=== PATIENT | male | born 1955 | race Caucasian/White ===

== ENCOUNTER 2018-09-02 21:20 | Inpatient (IN) | payer MEDICAID, OTHER ==
[2018-09-02] MEDS ORDERED: KETAMINE HCL INJ 500 MG/10 ML VIAL IV ONE (21:25)
[2018-09-02] MEDS ORDERED: ALBUTEROL SULFATE 0.083% NEB 2.5 MG/3 ML AMPUL NEB ONE ×2 (21:25→23:30)
--- NOTE | 2018-09-02 21:45 | ER Document Report ---
ED General - General Stated Complaint: RESPIRATORY DISTRESS Cannot obtain history due to: Unstable vital signs Notes: Patient is a 63-year-old male with a past medical history of COPD, active smoker , hypertension, alcohol abuse, who presents by EMS with concerns of shortness of breath. Patient himself is unable to provide meaningful history due to his degree of distress at time of arrival. EMS does report that when they arrived to the home it was filled with tobacco smoking was very hot. He said the patient was saturating 85% on room air, was in severe respiratory distress. In route to the hospital he received magnesium, Solu-Medrol, multiple nebulizers but refused to tolerate CPAP. He states he does not currently have a primary care doctor. History is otherwise limited secondary to his degree of distress. TRAVEL OUTSIDE OF THE [place] IN LAST 30 DAYS: No - Related Data Allergies/Adverse Reactions: Penicillins Allergy (Verified 01/06/15 09:59) Sulfa (Sulfonamide Antibiotics) Allergy (Verified 01/06/15 09:59) Past Medical History - General Information source: Patient Cannot obtain history due to: Unstable vital signs - Social History Smoking Status: Current Every Day Smoker Frequency of alcohol use: Heavy Drug Abuse: None Lives with: Alone Family History: Reviewed & Not Pertinent Pulmonary Medical History: Reports: Hx Asthma, Hx COPD, Hx Pneumonia Past Surgical History: Reports: Hx Oral Surgery - jaw - Immunizations Immunizations up to date: Yes Hx Diphtheria, Pertussis, Tetanus Vaccination: Yes - 2009 Hx Pneumococcal Vaccination: 10/31/09 Review of Systems - Review of Systems Notes: Constitutional: Negative for fever. HENT: Negative for sore throat. Eyes: Negative for visual changes. Cardiovascular: Negative for chest pain. Respiratory: Positive for shortness of breath. Gastrointestinal: Negative for abdominal pain, vomiting or diarrhea. Genitourinary: Negative for dysuria. Musculoskeletal: Negative for back pain. Skin: Negative for rash. Neurological: Negative for headaches, weakness or numbness. 10 point ROS negative except as marked above and in HPI. Physical Exam - Vital signs Vitals: Pulse Ox 100 09/02/18 21:24 Interpretation: Tachycardic, Hypoxic, Tachypneic Notes: PHYSICAL EXAMINATION: GENERAL: Appears in moderate to severe respiratory distress, appears quite uncomfortable HEAD: Atraumatic, normocephalic. EYES: Pupils equal round and reactive to light, extraocular movements intact, sclera anicteric, conjunctiva are normal. ENT: nares patent, oropharynx clear without exudates. Moderately dry mucous membranes. NECK: Normal range of motion, supple without lymphadenopathy LUNGS: Moderate to severe respiratory distress, extremely poor air movement throughout almost silent at the bases bilaterally. Coarse expiratory wheezing in all lung mack. HEART: Regular tachycardia without murmurs ABDOMEN: Soft, nontender, normoactive bowel sounds. No guarding, no rebound. No masses appreciated. EXTREMITIES: Normal range of motion, no pitting or edema. No cyanosis. NEUROLOGICAL: No focal neurological deficits. Moves all extremities spontaneously and on command. PSYCH: Moderately anxious SKIN: Warm, Dry, normal turgor, no rashes or lesions noted. Course - Re-evaluation Re-evalutation: 09/02/18 21:44 Documentation is delayed as I have been at the patient's bedside since he arrived. In summary the patient arrives in respiratory distress, intercostal and supraclavicular retractions are noted. He has very poor air movement in all lung mack particular at the bases which are effectively silent at time of presentation. He has already received 125 mg of Solu-Medrol, 2 g of magnesium, and 3 duo nebulizers prior to arrival. The patient was immediately placed on BiPAP at time of arrival given his ongoing distress. Will continue ongoing in- line albuterol nebulizers. Will obtain chest x-ray, labs and give low-dose ketamine for anxiolysis as well as bronchodilation. Patient is critically ill, will require frequent reassessments as he is high risk for respiratory decompensation and need for intubation. 09/02/18 22:26 Patient continues to continue to take off the BiPAP despite having ongoing moderate respiratory distress. Will give Valium so that he is able to cope with the BiPAP better. Will continue to keep on BiPAP as much the patient will tolerate. 09/02/18 23:30 Patient is continued to be unable to tolerate BiPAP and it therefore has been discontinued. His work of breathing is however much improved at this point. He does have moderate tachypnea although his oxygen saturation is currently 96% on 2 L by nasal cannula. He does not have a baseline oxygen requirement. Will discuss with the hospitalist for admission. 09/02/18 23:33 I discussed the case with Dr. Bhagat who has accepted the patient for admission - Vital Signs Vital signs: Temp Pulse Resp BP Pulse Ox 98.1 F 19 111/62 97 09/03/18 01:38 EDT 09/03/18 01:08 EDT 09/03/18 01:08 EDT 09/03/18 01:08 EDT - Laboratory Result Diagrams: 09/02/18 21:45 09/02/18 21:45 Laboratory results interpreted by me: 09/02/18 09/02/18 21:45 21:45 MCV 104 H MCH 36.0 H RDW 15.2 H Seg Neutrophils % 27.6 L Lymphocytes % 54.8 H Eosinophils % 8.3 H Absolute Eosinophils 0.7 H BUN 5 L ALT 18 L - Diagnostic Test Radiology reviewed: Image reviewed, Reports reviewed Radiology results interpreted by me: 09/02/18 23:30 Chest x-ray: No acute infiltrate or pneumothorax Critical Care Note - Critical Care Note Total time excluding time spent on procedures (mins): 36 Comments: Critical care time spent obtaining history from patient or surrogate, discussions with consultants, development of treatment plan with patient or surrogate, evaluation of patient's response to treatment, examination of patient , ordering and performing treatments and interventions, ordering and review of laboratory studies, re-evaluation of patient's condition, ordering and review of radiographic studies and review of old charts Discharge - Discharge Clinical Impression: Respiratory distress, Tobacco use disorder, COPD exacerbation Condition: Fair Disposition: ADMITTED INPATIENT Admitting Provider: Hospitalist Unit Admitted: Telemetry
[2018-09-02 21:58] LABS: ABSOLUTE EOSINOPHILS # (AUTO) 0.7 10^3/uL (0.0-0.6); ABSOLUTE LYMPHOCYTES (AUTO) 4.3 10^3/uL (0.5-4.7); ABSOLUTE MONOCYTES (AUTO) 0.7 10^3/uL (0.1-1.4); ABSOLUTE NEUT (AUTO) 2.2 10^3/uL (1.7-8.2); BASOPHILS % (AUTO) 0.5 % (0-2); EOSINOPHILS % (AUTO) 8.3 % (0-6); HEMATOCRIT 45.9 % (37.9-51.0); HEMOGLOBIN 15.9 g/dL (13.5-17.0); LYMPHOCYTES % (AUTO) 54.8 % (13-45); MEAN CORPUSCULAR HGB CONC 34.6 g/dL (32.0-36.0); MEAN CORPUSCULAR VOLUME 104 fl (80-97); MONOCYTES % (AUTO) 8.8 % (3-13); PLATELET COUNT 213 10^3/uL (150-450); RED BLOOD COUNT 4.41 10^6/uL (4.35-5.55); RED CELL DISTRIBUTION WIDTH 15.2 % (11.5-14.0); SEGMENTED NEUTROPHILS % (AUTO) 27.6 % (42-78); TOTAL CELLS COUNTED % (AUTO) 100 %; WHITE BLOOD COUNT 7.8 10^3/uL (4.0-10.5)
[2018-09-02 22:09] LABS: ALANINE AMINOTRANSFERASE 18 U/L (21-72); ALBUMIN 4.1 g/dL (3.5-5.0); ALKALINE PHOSPHATASE 100 U/L (38-126); ANION GAP 14 (5-19); ASPARTATE AMINO TRANSFERASE 27 U/L (17-59); BILIRUBIN,DIRECT 0.3 mg/dL (0.0-0.4); BILIRUBIN,TOTAL 0.8 mg/dL (0.2-1.3); BLOOD UREA NITROGEN 5 mg/dL (7-20); CALCIUM 8.8 mg/dL (8.4-10.2); CARBON DIOXIDE 26 mmol/L (22-30); CHLORIDE 103 mmol/L (98-107); GLUCOSE 110 mg/dL (75-110); POTASSIUM 3.8 mmol/L (3.6-5.0); SODIUM 143.1 mmol/L (137-145); TOTAL PROTEIN 6.7 g/dL (6.3-8.2)
--- NOTE | 2018-09-02 22:22 | RADIOLOGY REPORT (SQ) ---
EXAM DESCRIPTION: XR CHEST 1 VIEW COMPLETED DATE/TME: 09/02/2018 21:26 CLINICAL HISTORY: 63 years, Male, sob COMPARISON: None. NUMBER OF VIEWS: 1 TECHNIQUE: Upright portable chest LIMITATIONS: None. FINDINGS: The heart size is normal. Underlying emphysema. Osteopenia. Multiple old right rib fractures. Lungs are clear. No pneumothorax IMPRESSION: Underlying emphysema. Lungs are clear 2010 [employer]- All Rights Reserved
[2018-09-02] MEDS ORDERED: DIAZEPAM INJ 10 MG/2 ML DISP.SYRIN IV ONE (22:23)
[2018-09-02] MEDS ORDERED: RINGERS SOLUTION,LACTATED 1,000 ML IV ONE (22:26)
[2018-09-02] MEDS ORDERED: NICOTINE 21 MG/24 HR PATCH.TD24 TD ONE (23:31)
[2018-09-02] MEDS ORDERED: PROMETHAZINE HCL 25 MG TABLET PO PRN (23:44)
[2018-09-02] MEDS ORDERED: PROMETHAZINE HCL INJ 25 MG/1 ML VIAL IV PRN (23:44)
[2018-09-02] MEDS ORDERED: ACETAMINOPHEN 325 MG TABLET PO PRN (23:44)
[2018-09-02] MEDS ORDERED: MAG HYDROX/AL HYDROX/SIMETH SUSP 30 ML UDCUP PO PRN (23:44)
[2018-09-03] MEDS ORDERED: AZITHROMYCIN INJ 500 MG VIAL IV PRN (00:16)
[2018-09-03] MEDS ORDERED: METHYLPREDNISOLONE INJ 125 MG/2 ML SDV IV ONE (00:30)
--- NOTE | 2018-09-03 00:37 | PDOC H&P ---
History of Present Illness Admission Date/PCP: 09/02/18 23:48 Patient complains of: Shortness of breath History of Present Illness: SHANE CAPONE JR is a 63 year old male with history of COPD, no home oxygen. Patient comes with 4 days of progressive shortness of breath, persistent cough with large amounts of greenish sputum, wheezing, tells me that today he was unable to walk secondary to his shortness of breath. EMS was called and he was found sitting on the porch bending over with intercostal retractions. Found with an oxygen saturation 88%. On his way to the hospital he was given IV magnesium, IV steroids and nebulizer treatments. Upon arrival to our facility he was still in respiratory distress but improved from 40 bpm to 21. Patient was a still with some intercostal retractions and he was placed on BiPAP, patient was not keeping the BiPAP in the ED and ketamine and diazepam was given unsuccessfully. Patient was placed on 2 L oxygen via nasal cannula, current saturating 99%. Unfortunately patient is a smoker went down from 2 packs/day to 1 pack/day, he and his older sister smokes inside the house. Patient drinks usually 12 pack a day, today he has had 5 beers. Chest x-ray negative for acute infiltrates At the time of my evaluation patient was sitting on the bed on 2 L oxygen via nasal cannula, comfortable, no evidence of intercostal or supraclavicular retractions. Past Medical History Pulmonary Medical History: Reports: Asthma, Chronic Obstructive Pulmonary Disease (COPD), Pneumonia Past Surgical History Past Surgical History: Reports: Other - Oral surgery Social History Information Source: Patient Smoking Status: Current Every Day Smoker - Down from 2 packs/day to 1 pack/day Frequency of Alcohol Use: Heavy - A 12 pack a day Last Alcohol Use: 09/02/18 - 5 beers Hx Recreational Drug Use: No Hx Prescription Drug Abuse: No Past Social History Note: Lives with his older sister, both smoke inside the house. Family History Family History: Reviewed & Not Pertinent Family History: Mother of cancer. No children. Father of prostate cancer. Both parents at advanced ages at time of . Parental Family History Reviewed: Yes - As above Children Family History Reviewed: NA Sibling(s) Family History Reviewed.: NA Medication/Allergy Home Medications: Fluticasone/Salmeterol [Advair 250-50 Diskus 28 dose] 1 inh IH DAILY 01/06/15 Ipratropium/Albuterol Sulfate [Duoneb 3 ml Ampul] 3 ml NEB [id number] PRN 01/06/15 Tiotropium [place] [Spiriva Handihaler 18 mcg/dose (30 Dose)] 1 cap IH DAILY 07/15 Ipratropium/Albuterol Sulfate [Combivent Inhaler] 20 mcg IH Q4 03/18/15 Doxycycline Monohydrate 100 mg PO Q12H #10 tablet 03/22/15 Prednisone [Deltasone 20 mg Tablet] 40 mg PO DAILY #5 tablet 03/22/15 Prednisone [Deltasone 20 mg Tablet] 60 mg PO DAILY #12 tablet 04/13/15 Allergies/Adverse Reactions: Penicillins Allergy (Verified 01/06/15 09:59) Sulfa (Sulfonamide Antibiotics) Allergy (Verified 01/06/15 09:59) Review of Systems Review of Systems: As outlined in the HPI, others negative Physical Exam Vital Signs: Temp Pulse Resp BP Pulse Ox 19 131/82 H 96 09/03/18 00:01 09/03/18 00:01 09/03/18 00:01 Additional comments: General appearance: Well-developed, well-nourished, alert and cooperative, and appears to be in no acute distress. Wearing nasal cannula. Head: Normocephalic Eyes: PEERL, EOMI, vision is grossly intact. Ears: External auditory canal and tympanic membranes clear, hearing grossly intact. Nose: No nasal discharge. Throat: Oral cavity and pharynx normal. No inflammation, swelling, exudate or lesions. Not dentitition Neck: Neck supple, nontender without lymphadenopathy, masses or thyromegaly. Cardiac: Normal S1 and S2. No S3, S4 or murmurs. Rhythm is regular. There is no peripheral edema, cyanosis or pallor. Extremities are warm and well perfused. Capillary refill is less than 2 seconds. No carotid bruits. Lungs: Bilateral decreased air entry with moderate expiratory wheezing, moderate rhonchi, diffuse crackles not using accessory muscles. Abdomen: Positive bowel sounds. Soft. Nondistended, nontender. No guarding or rebound. No masses. No hepatosplenomegaly Extremities: No significant deformity or joint abnormality. No edema. Peripheral pulses intact. No varicosities. Neurological: Cranial nerves II through XII grossly intact. Strength and sensation symmetric and intact throughout. Reflexes 2+ throughout. Skin: Skin normal color, texture and turgor with no lesions or eruptions, warm and dry. Psychiatric: The mental examination revealed the patient was oriented to person , place, and time. The patient was able to demonstrate good judgment on recent , without hallucinations, abnormal affect or abnormal behaviors. Results Laboratory Results: 09/02/18 09/02/18 21:45 21:45 WBC 7.8 RBC 4.41 Hgb 15.9 Hct 45.9 MCV 104 H MCH 36.0 H MCHC 34.6 RDW 15.2 H Plt Count 213 Seg Neutrophils % 27.6 L Lymphocytes % 54.8 H Monocytes % 8.8 Eosinophils % 8.3 H Basophils % 0.5 Absolute Neutrophils 2.2 Absolute Lymphocytes 4.3 Absolute Monocytes 0.7 Absolute Eosinophils 0.7 H Absolute Basophils 0.0 Sodium 143.1 Potassium 3.8 Chloride 103 Carbon Dioxide 26 Anion Gap 14 BUN 5 L Creatinine 0.76 Est GFR ( Amer) > 60 Est GFR (Non-Af Amer) > 60 Glucose 110 Calcium 8.8 Total Bilirubin 0.8 Direct Bilirubin 0.3 AST 27 ALT 18 L Alkaline Phosphatase 100 Total Protein 6.7 Albumin 4.1 Impressions: Chest X-Ray 09/02/18 21:26 IMPRESSION: Underlying emphysema. Lungs are clear 2010 [employer]- All Rights Reserved Assessment & Plan - Diagnosis (1) Acute respiratory failure with hypoxia Is this a current diagnosis for this admission?: Yes Plan: Patient comes with acute respiratory failure, initial oxygen saturation 88% on room air, secondary to COPD exacerbation. Placed on BiPAP the patient could not tolerate despite being given ketamine and diazepam. Fortunately patient at that time could tolerate 2 L oxygen via nasal cannula with good oxygen saturation. (2) COPD with acute exacerbation Is this a current diagnosis for this admission?: Yes Plan: COPD exacerbation likely triggered by his smoking habit. We will keep the patient under telemetry monitoring, Solu-Medrol 80 mg IV every 8 hours, IV azithromycin, continue oxygen protocol via nasal cannula, RT consult, incentive spirometry, sputum culture. (3) Alcohol dependence Qualifiers: Complication of substance-induced condition: uncomplicated Is this a current diagnosis for this admission?: Yes Plan: Patient is heavy a smoker, usually drinks a 12 pack a day, today he drank about [address] IV Ativan as needed for withdrawal symptoms. IV thiamine will be ordered, we do not have banana bags at night they have to be mixed a pharmacy. Serum alcohol level added to prior labs. (4) Tobacco use disorder Is this a current diagnosis for this admission?: Yes Plan: Patient tells me he went down from 2 packs/day to 1 pack/day, unfortunately he smokes inside the house and his older sister who lives with him also smokes inside the house. Nicotine patch 21 mg/day. Counseling given. (5) DVT prophylaxis Is this a current diagnosis for this admission?: Yes Plan: Lovenox - Time Time Spent: 50 to 70 Minutes - Inpatient Certification Based on my medical assessment, after consideration of the patient's comorbidities, presenting symptoms, or acuity I expect that the services needed warrant INPATIENT care.: Yes I certify that my determination is in accordance with my understanding of Medicare's requirements for reasonable and necessary INPATIENT services [42 CFR 412.3e].: Yes Medical Necessity: Risk of Complication if Not Cared For in Hospital - Plan Summary Plan Summary: Plan discussed with patient, agrees with it.
[2018-09-03] MEDS ORDERED: AZITHROMYCIN 500 MG in DEXTROSE 5%-WATER 250 ML IV ONE (01:00)
[2018-09-03] MEDS: IPRATROPIUM/ALBUTEROL 0.5-2.5 MG/3 ML AMPUL NEB SCH ×5 (01:29→19:57)
[2018-09-03] MEDS ORDERED: METHYLPREDNISOLONE INJ 125 MG/2 ML SDV IV SCH (06:00)
[2018-09-03 06:09] LABS: ABSOLUTE LYMPHOCYTES (AUTO) 0.3 10^3/uL (0.5-4.7); ABSOLUTE NEUT (AUTO) 3.4 10^3/uL (1.7-8.2); BASOPHILS % (AUTO) 0.1 % (0-2); EOSINOPHILS % (AUTO) 0.1 % (0-6); HEMATOCRIT 39.8 % (37.9-51.0); HEMOGLOBIN 13.9 g/dL (13.5-17.0); LYMPHOCYTES % (AUTO) 7.4 % (13-45); MEAN CORPUSCULAR HEMOGLOBIN 36.3 pg (27.0-33.4); MEAN CORPUSCULAR VOLUME 104 fl (80-97); MONOCYTES % (AUTO) 0.6 % (3-13); PLATELET COUNT 147 10^3/uL (150-450); RED BLOOD COUNT 3.84 10^6/uL (4.35-5.55); RED CELL DISTRIBUTION WIDTH 14.6 % (11.5-14.0); SEGMENTED NEUTROPHILS % (AUTO) 91.8 % (42-78); TOTAL CELLS COUNTED % (AUTO) 100 %; WHITE BLOOD COUNT 3.7 10^3/uL (4.0-10.5)
[2018-09-03 06:22] LABS: ANION GAP 15 (5-19); BLOOD UREA NITROGEN 4 mg/dL (7-20); CALCIUM 8.6 mg/dL (8.4-10.2); CARBON DIOXIDE 22 mmol/L (22-30); CHLORIDE 105 mmol/L (98-107); GLUCOSE 165 mg/dL (75-110); PHOSPHORUS 2.7 mg/dL (2.5-4.5); POTASSIUM 3.3 mmol/L (3.6-5.0); SODIUM 142.2 mmol/L (137-145)
[2018-09-03 07:19] LABS: ARTERIAL BLOOD BASE EXCESS -5.2 mmol/L; ARTERIAL BLOOD H2CO3 1.08 mmol/L (1.05-1.35); ARTERIAL BLOOD HCO3 19.6 mmol/L (20-24); ARTERIAL BLOOD O2 SATURATION 96.2 % (94-98); ARTERIAL BLOOD PCO2 35.8 mmHg (35-45); ARTERIAL BLOOD PH 7.36 (7.35-7.45); ARTERIAL BLOOD PO2 85.4 mmHg (80-100); ARTERIAL BLOOD TOTAL CO2 20.7 mmol/L (23-27)
[2018-09-03 07:21] LABS: ARTERIAL BLOOD FIO2 1.5
[2018-09-03] MEDS: LORAZEPAM INJ 2 MG/1 ML VIAL IV PRN ×4 (08:30→21:33)
[2018-09-03] MEDS: ENOXAPARIN SODIUM INJ 40 MG/0.4 ML DISP.SYRIN SUBCUT SCH (09:09)
[2018-09-03] MEDS: NICOTINE 21 MG/24 HR PATCH.TD24 TD SCH (09:09)
[2018-09-03] MEDS ORDERED: TIOTROPIUM BROMIDE DPI 5 CAP/KIT (18 MCG/CAP) IH SCH (10:00)
[2018-09-03] MEDS ORDERED: FLUTICASONE/SALMETEROL DISKUS 250-50 MCG/DOSE IH SCH (10:00)
[2018-09-03] MEDS ORDERED: LEVALBUTEROL HCL NEB 1.25 MG/3 ML AMPUL NEB PRN (10:25)
--- NOTE | 2018-09-03 10:42 | PDOC PROGRESS REPORT ---
Subjective Progress Note for:: 09/03/18 Subjective:: The patient reports feeling better this morning. He is sitting eating breakfast on nasal cannula. He is not tachypneic and there is no audible wheeze. Reason For Visit: ACUTE HYPOXIC RESPIRATORY FAILURE,COPD EXACERBATIO Physical Exam Vital Signs: Temp Pulse Resp BP Pulse Ox 98.6 F 98 18 130/63 H 98 09/03/18 07:43 09/03/18 07:43 09/03/18 07:43 09/03/18 07:43 09/03/18 07:43 Intake & Output 09/02/18 09/03/18 09/04/18 07:59 06:59 06:59 Intake Total Output Total Balance General appearance: PRESENT: no acute distress, thin, well-developed Head exam: PRESENT: atraumatic, normocephalic Eye exam: PRESENT: conjunctiva pale, EOMI. ABSENT: scleral icterus Ear exam: PRESENT: normal external ear exam Mouth exam: PRESENT: moist, tongue midline Neck exam: PRESENT: full ROM. ABSENT: carotid bruit, JVD, lymphadenopathy Respiratory exam: PRESENT: clear to auscultation alia, prolonged expiratory phas - With decreased inspiratory phase., symmetrical. ABSENT: rales, rhonchi, wheezes Cardiovascular exam: PRESENT: RRR, +S1, +S2 GI/Abdominal exam: PRESENT: normal bowel sounds, soft. ABSENT: tenderness Extremities exam: PRESENT: other - Decreased muscle mass. ABSENT: pedal edema Neurological exam: PRESENT: alert, awake, oriented to person, oriented to place , oriented to situation Psychiatric exam: PRESENT: flat affect, normal mood Focused psych exam: ABSENT: delusional, paranoid, restlessness Skin exam: PRESENT: dry, intact, warm. ABSENT: cyanosis, rash Results Laboratory Results: 09/03/18 04:52 09/03/18 04:52 09/03/18 09/03/18 09/03/18 04:52 04:52 06:50 WBC 3.7 L RBC 3.84 L Hgb 13.9 Hct 39.8 MCV 104 H MCH 36.3 H MCHC 35.0 RDW 14.6 H Plt Count 147 L Seg Neutrophils % 91.8 H Lymphocytes % 7.4 L Monocytes % 0.6 L Eosinophils % 0.1 Basophils % 0.1 Absolute Neutrophils 3.4 Absolute Lymphocytes 0.3 L Absolute Monocytes 0.0 L Absolute Eosinophils 0.0 Absolute Basophils 0.0 Carbonic Acid 1.08 HCO3/H2CO3 Ratio 18:1 ABG pH 7.36 ABG pCO2 35.8 ABG pO2 85.4 ABG HCO3 19.6 L ABG O2 Saturation 96.2 ABG Base Excess -5.2 FiO2 1.5 Sodium 142.2 Potassium 3.3 L Chloride 105 Carbon Dioxide 22 Anion Gap 15 BUN 4 L Creatinine 0.64 Est GFR ( Amer) > 60 Est GFR (Non-Af Amer) > 60 Glucose 165 H Calcium 8.6 Phosphorus 2.7 Impressions: Chest X-Ray 09/02/18 21:26 IMPRESSION: Underlying emphysema. Lungs are clear 2010 [employer]- All Rights Reserved Assessment & Plan - Diagnosis (1) COPD with acute bronchitis Is this a current diagnosis for this admission?: Yes Plan: The patient presented with a history of coughing up discolored sputum. Chest x- ray did not reveal an infiltrate and we are waiting for sputum collection. It is likely he is suffering an exacerbation of his chronic obstructive pulmonary disease from an acute bronchitis. For the exacerbation of COPD he is on scheduled nebulizer treatments as well as as needed treatments. He continues his Advair and Spiriva and he is now on intravenous steroid therapy. For the acute bronchitis he is on azithromycin. (2) Alcohol dependence Qualifiers: Complication of substance-induced condition: uncomplicated Is this a current diagnosis for this admission?: Yes Plan: The patient has a history of alcohol use. In fact this morning he was already asking for beer. He is on thiamine with available lorazepam as needed. (3) Tobacco use disorder Is this a current diagnosis for this admission?: Yes Plan: He is a current smoker. He does have a nicotine patch. (4) Hypokalemia Is this a current diagnosis for this admission?: Yes Plan: The patient has hypokalemia today. I will start an oral supplement. With his significantly decreased muscle mass and history of alcoholism is likely due to inadequate potassium intake. - Time Time Spent with patient: 15-24 minutes Medications reviewed and adjusted accordingly: Yes
[2018-09-03] MEDS: THIAMINE HCL 500 MG in NORMAL SALINE 250 ML IV SCH (11:11)
[2018-09-03 11:46] LABS: HEMATOCRIT 40.9 % (37.9-51.0); MEAN CORPUSCULAR HEMOGLOBIN 35.7 pg (27.0-33.4); MEAN CORPUSCULAR HGB CONC 34.1 g/dL (32.0-36.0); MEAN CORPUSCULAR VOLUME 105 fl (80-97); PLATELET COUNT 163 10^3/uL (150-450); RED BLOOD COUNT 3.91 10^6/uL (4.35-5.55); RED CELL DISTRIBUTION WIDTH 14.9 % (11.5-14.0); WHITE BLOOD COUNT 4.7 10^3/uL (4.0-10.5)
[2018-09-03] MEDS ORDERED: POTASSIUM CHLORIDE 10 MEQ CAPSULE.ER PO ONE (12:00)
[2018-09-03] MEDS ORDERED: DIAZEPAM 5 MG TABLET PO ONE (16:37)
[2018-09-03] MEDS ORDERED: METOPROLOL TARTRATE 25 MG TABLET PO ONE (16:40)
[2018-09-03] MEDS ORDERED: NORMAL SALINE 1000 ML 1,000 ML IV PRN (16:44)
[2018-09-03] MEDS: METHYLPREDNISOLONE INJ 125 MG/2 ML SDV IV SCH (21:32)
[2018-09-03] MEDS: PROPRANOLOL HCL 20 MG TABLET PO SCH (21:35)
[2018-09-03] MEDS: AZITHROMYCIN 500 MG in DEXTROSE 5%-WATER 250 ML IV SCH (21:35)
--- NOTE | 2018-09-03 22:20 | EKG REPORT ---
SEVERITY:- ABNORMAL ECG - SINUS RHYTHM LEFT ANTERIOR FASCICULAR BLOCK BORDERLINE T ABNORMALITIES, ANT-LAT LEADS : Confirmed by: Irma Cisneros MD 03-Sep-2018 22:20:06
[2018-09-03] MEDS ORDERED: BEER PO ONE (23:55)
[2018-09-04] MEDS: LORAZEPAM INJ 2 MG/1 ML VIAL IV PRN ×5 (00:24→21:04)
[2018-09-04] MEDS: IPRATROPIUM/ALBUTEROL 0.5-2.5 MG/3 ML AMPUL NEB SCH ×4 (02:07→20:37)
[2018-09-04] MEDS ORDERED: LORAZEPAM INJ 2 MG/1 ML VIAL IV ONE ×2 (02:45→03:00)
[2018-09-04] MEDS ORDERED: LORAZEPAM INJ 2 MG/1 ML VIAL ONE (02:53)
[2018-09-04] MEDS ORDERED: DIVALPROEX SODIUM 500 MG TAB.SR.24H PO ONE (03:00)
[2018-09-04] MEDS ORDERED: DIAZEPAM 5 MG TABLET PO ONE (04:30)
[2018-09-04 06:32] LABS: HEMATOCRIT 40.5 % (37.9-51.0); HEMOGLOBIN 14.4 g/dL (13.5-17.0); MEAN CORPUSCULAR HEMOGLOBIN 36.5 pg (27.0-33.4); MEAN CORPUSCULAR HGB CONC 35.5 g/dL (32.0-36.0); MEAN CORPUSCULAR VOLUME 103 fl (80-97); PLATELET COUNT 140 10^3/uL (150-450); RED BLOOD COUNT 3.95 10^6/uL (4.35-5.55); RED CELL DISTRIBUTION WIDTH 14.7 % (11.5-14.0)
[2018-09-04 06:41] LABS: ANION GAP 16 (5-19); BLOOD UREA NITROGEN 11 mg/dL (7-20); CALCIUM 9.2 mg/dL (8.4-10.2); CARBON DIOXIDE 22 mmol/L (22-30); CHLORIDE 104 mmol/L (98-107); GLUCOSE 126 mg/dL (75-110); POTASSIUM 3.8 mmol/L (3.6-5.0); SODIUM 141.9 mmol/L (137-145)
[2018-09-04 07:27] LABS: WHITE BLOOD COUNT 14.7 10^3/uL (4.0-10.5)
[2018-09-04 07:29] LABS: ABSOLUTE LYMPHOCYTES# (MANUAL) 0.4 10^3/uL (0.5-4.7); ABSOLUTE MONOCYTES # (MANUAL) 0.7 10^3/uL (0.1-1.4); ABSOLUTE NEUTROPHILS# (MANUAL) 13.5 10^3/uL (1.7-8.2); BASOPHILS % (MANUAL) 0 % (0-2); EOSINOPHILS % (MANUAL) 0 % (0-6); LYMPHOCYTES % (MANUAL) 3 % (13-45); MONOCYTES % (MANUAL) 5 % (3-13); SEGMENTED NEUTROPHILS % (MAN) 92 % (42-78); TOTAL CELLS COUNTED 100
[2018-09-04 07:30] LABS: ANISOCYTOSIS SLIGHT; PLATELET COMMENT DECREASED
[2018-09-04] MEDS: THIAMINE HCL 500 MG in NORMAL SALINE 250 ML IV SCH (11:00)
[2018-09-04] MEDS: METHYLPREDNISOLONE INJ 125 MG/2 ML SDV IV SCH (11:01)
[2018-09-04] MEDS: PROPRANOLOL HCL 20 MG TABLET PO SCH ×2 (11:02→21:05)
[2018-09-04] MEDS: POTASSIUM CHLORIDE 10 MEQ CAPSULE.ER PO SCH (11:02)
[2018-09-04] MEDS: NICOTINE 21 MG/24 HR PATCH.TD24 TD SCH (11:03)
[2018-09-04] MEDS: ENOXAPARIN SODIUM INJ 40 MG/0.4 ML DISP.SYRIN SUBCUT SCH (11:48)
[2018-09-04] MEDS ORDERED: PROMETHAZINE HCL INJ 25 MG/1 ML VIAL IV PRN (12:30)
[2018-09-04] MEDS: DIVALPROEX SODIUM 500 MG TAB.SR.24H PO SCH (17:00)
--- NOTE | 2018-09-04 18:31 | PDOC PROGRESS REPORT ---
Subjective Progress Note for:: 09/04/18 Subjective:: The patient reports feeling better this morning. He is sitting eating breakfast on nasal cannula. He is not tachypneic and there is no audible wheeze. 09/04/2018-the patient had a difficult night. He was tremulous and tachycardic. Despite giving him a beer and starting Depakote he required a large dose of Valium later in the night. At this encounter he is still sleeping off the medication. He is breathing comfortably on nasal cannula. He was not cooperative with the BiPAP. Reason For Visit: ACUTE HYPOXIC RESPIRATORY FAILURE,COPD EXACERBATIO Physical Exam Vital Signs: Temp Pulse Resp BP Pulse Ox 97.5 F 76 20 122/62 95 09/04/18 14:15 09/04/18 14:15 09/04/18 14:15 09/04/18 14:15 09/04/18 14:15 Intake & Output 09/03/18 09/04/18 09/05/18 06:59 06:59 06:59 Intake Total 3351 255 Output Total 300 Balance 3051 255 Weight 64.1 kg General appearance: PRESENT: no acute distress Head exam: PRESENT: atraumatic, normocephalic Eye exam: PRESENT: other - Unable to assess Mouth exam: PRESENT: other - Unable to assess Throat exam: PRESENT: other - Unable to assess Neck exam: ABSENT: carotid bruit, JVD, lymphadenopathy Respiratory exam: PRESENT: clear to auscultation alia, other - Limited exam as patient was sleeping on his left side.. ABSENT: rales, rhonchi, wheezes Cardiovascular exam: PRESENT: RRR, +S1, +S2 GI/Abdominal exam: PRESENT: normal bowel sounds, soft. ABSENT: distended, tenderness Neurological exam: PRESENT: other - Sleeping soundly secondary to medication. Several loud attempts at verbal stimulus was met with no response. He was moving spontaneously. Results Laboratory Results: 09/04/18 05:50 09/04/18 05:50 09/04/18 09/04/18 05:50 05:50 WBC 14.7 H D RBC 3.95 L Hgb 14.4 Hct 40.5 MCV 103 H MCH 36.5 H MCHC 35.5 RDW 14.7 H Plt Count 140 L Seg Neutrophils % Not Reportable Lymphocytes % Not Reportable Monocytes % Not Reportable Eosinophils % Not Reportable Basophils % Not Reportable Absolute Neutrophils Not Reportable Absolute Lymphocytes Not Reportable Absolute Monocytes Not Reportable Absolute Eosinophils Not Reportable Absolute Basophils Not Reportable Sodium 141.9 Potassium 3.8 Chloride 104 Carbon Dioxide 22 Anion Gap 16 BUN 11 Creatinine 0.62 Est GFR ( Amer) > 60 Est GFR (Non-Af Amer) > 60 Glucose 126 H Calcium 9.2 Magnesium 1.9 Impressions: Chest X-Ray 09/02/18 21:26 IMPRESSION: Underlying emphysema. Lungs are clear 2010 [employer]- All Rights Reserved Assessment & Plan - Diagnosis (1) COPD with acute bronchitis Is this a current diagnosis for this admission?: Yes Plan: The patient presented with a history of coughing up discolored sputum. Chest x- ray did not reveal an infiltrate and we are waiting for sputum collection. It is likely he is suffering an exacerbation of his chronic obstructive pulmonary disease from an acute bronchitis. For the exacerbation of COPD he is on scheduled nebulizer treatments as well as as needed treatments. He continues his Advair and Spiriva and he is now on intravenous steroid therapy. For the acute bronchitis he is on azithromycin. 09/04/2018-review of the patient's sputum culture shows many gram-positive diplococci. This is characteristic for Streptococcus pneumoniae. I have added levofloxacin to the azithromycin. (2) Alcohol dependence Qualifiers: Complication of substance-induced condition: uncomplicated Is this a current diagnosis for this admission?: Yes Plan: The patient has a history of alcohol use. In fact this morning he was already asking for beer. He is on thiamine with available lorazepam as needed. 09/04/2018-patient is likely going through DTs. In addition to benzodiazepine therapy Depakote has been added. Consider BuSpar or clonidine. (3) Tobacco use disorder Is this a current diagnosis for this admission?: Yes Plan: He is a current smoker. He does have a nicotine patch. 09/04/2018-was unable to engage in smoking cessation discussion with the patient due to his clinical state. (4) Hypokalemia Is this a current diagnosis for this admission?: Yes Plan: The patient has hypokalemia today. I will start an oral supplement. With his significantly decreased muscle mass and history of alcoholism is likely due to inadequate potassium intake. 09/04/2018-continue oral intake when the patient is cooperative. Recheck serum chemistries tomorrow. (5) Leucocytosis Is this a current diagnosis for this admission?: Yes Plan: 09/04/2018-the patient had an elevated white count at the time of admission. The next day he had a marked decrease in his white cells to less than 4. Repeat specimen had a similar value. Today's white blood cell count was back to being elevated similar to the admission. Continue to monitor CBC. - Time Time Spent with patient: 15-24 minutes - Plan Summary Plan Summary: In addition to the above the patient showed a significant decline in his platelets. I will hold his Lovenox for 2 days and recheck his CBC. If his platelet counts are stable I will resume his Lovenox for DVT prophylaxis.
[2018-09-04] MEDS: AZITHROMYCIN 500 MG in DEXTROSE 5%-WATER 250 ML IV SCH (21:04)
[2018-09-05] MEDS: IPRATROPIUM/ALBUTEROL 0.5-2.5 MG/3 ML AMPUL NEB SCH ×4 (02:27→20:50)
[2018-09-05] MEDS: DIVALPROEX SODIUM 500 MG TAB.SR.24H PO SCH (05:04)
[2018-09-05 05:18] LABS: HEMOGLOBIN 15.2 g/dL (13.5-17.0); MEAN CORPUSCULAR HEMOGLOBIN 35.8 pg (27.0-33.4); MEAN CORPUSCULAR HGB CONC 34.7 g/dL (32.0-36.0); MEAN CORPUSCULAR VOLUME 103 fl (80-97); PLATELET COUNT 122 10^3/uL (150-450); RED BLOOD COUNT 4.26 10^6/uL (4.35-5.55); RED CELL DISTRIBUTION WIDTH 15.3 % (11.5-14.0); WHITE BLOOD COUNT 13.8 10^3/uL (4.0-10.5)
[2018-09-05 05:33] LABS: ANION GAP 10 (5-19); BLOOD UREA NITROGEN 11 mg/dL (7-20); CALCIUM 8.8 mg/dL (8.4-10.2); CARBON DIOXIDE 26 mmol/L (22-30); CHLORIDE 105 mmol/L (98-107); GLUCOSE 87 mg/dL (75-110); SODIUM 140.9 mmol/L (137-145)
[2018-09-05] MEDS: METHYLPREDNISOLONE INJ 125 MG/2 ML SDV IV SCH (10:06)
[2018-09-05] MEDS: NICOTINE 21 MG/24 HR PATCH.TD24 TD SCH (10:07)
[2018-09-05] MEDS: ENOXAPARIN SODIUM INJ 40 MG/0.4 ML DISP.SYRIN SUBCUT SCH (10:09)
[2018-09-05] MEDS: LEVOFLOXACIN 750 MG/D5W RTU 750 MG/150 ML RTUPB IV SCH (10:16)
[2018-09-05] MEDS: POTASSIUM CHLORIDE 10 MEQ CAPSULE.ER PO SCH (10:57)
[2018-09-05] MEDS: THIAMINE HCL 500 MG in NORMAL SALINE 250 ML IV SCH (10:57)
[2018-09-05] MEDS: PROPRANOLOL HCL 20 MG TABLET PO SCH ×2 (10:58→21:59)
--- NOTE | 2018-09-05 11:09 | PDOC PROGRESS REPORT ---
Subjective Progress Note for:: 09/05/18 Subjective:: This is 63 years old male patient admitted with chief complaint of shortness of breath which is progressive associated with cough productive of greenish sputum. At admission patient also found to have leukocytosis. Patient has been empirically started on Zithromax and Levaquin for COPD exacerbation with bronchitis. This morning I seen patient resting in bed he is not in pain or distress. I will DC the Zithromax and keep the Levaquin. I discontinued the Depakote and I started him on diazepam 10 mg p.o. every 6 hours for his alcohol withdrawal. Reason For Visit: ACUTE HYPOXIC RESPIRATORY FAILURE,COPD EXACERBATIO Physical Exam Vital Signs: Temp Pulse Resp BP Pulse Ox 97.9 F 88 14 117/68 87 L 09/05/18 04:23 09/05/18 08:35 09/05/18 08:35 09/05/18 04:23 09/05/18 08:35 Intake & Output 09/04/18 09/05/18 09/06/18 06:59 06:59 06:59 Intake Total 3351 505 Output Total 300 Balance 3051 505 Weight 64.1 kg General appearance: PRESENT: no acute distress Head exam: PRESENT: atraumatic Eye exam: PRESENT: conjunctiva pink Mouth exam: PRESENT: dry mucosa Neck exam: ABSENT: carotid bruit, JVD, lymphadenopathy, thyromegaly Respiratory exam: PRESENT: rhonchi. ABSENT: rales, wheezes Cardiovascular exam: PRESENT: RRR. ABSENT: diastolic murmur, rubs, systolic murmur GI/Abdominal exam: PRESENT: normal bowel sounds, soft. ABSENT: distended, guarding, mass, organolmegaly, rebound, tenderness Results Laboratory Results: 09/05/18 04:38 09/05/18 04:38 09/05/18 09/05/18 04:38 04:38 WBC 13.8 H RBC 4.26 L Hgb 15.2 Hct 44.0 MCV 103 H MCH 35.8 H MCHC 34.7 RDW 15.3 H Plt Count 122 L Sodium 140.9 Potassium 4.0 Chloride 105 Carbon Dioxide 26 Anion Gap 10 BUN 11 Creatinine 0.60 Est GFR ( Amer) > 60 Est GFR (Non-Af Amer) > 60 Glucose 87 Calcium 8.8 Magnesium 2.2 Impressions: Chest X-Ray 09/02/18 21:26 IMPRESSION: Underlying emphysema. Lungs are clear 2010 [employer]- All Rights Reserved Assessment & Plan - Diagnosis (1) COPD with acute bronchitis Is this a current diagnosis for this admission?: Yes Plan: Continue Levaquin and present treatment. (2) Leucocytosis Is this a current diagnosis for this admission?: Yes Plan: Improving (3) Hypokalemia Is this a current diagnosis for this admission?: Yes Plan: Has resolved (4) Alcohol dependence with withdrawal Qualifiers: Complication of substance-induced condition: with unspecified complication Qualified Code(s): F10.239 - Alcohol dependence with withdrawal, unspecified Is this a current diagnosis for this admission?: Yes Plan: Currently patient sedated (5) Tobacco use disorder Is this a current diagnosis for this admission?: Yes Plan: I will encourage him to quit smoking.
[2018-09-05] MEDS: DIAZEPAM 5 MG TABLET PO SCH (15:49)
[2018-09-06] MEDS: DIAZEPAM 5 MG TABLET PO SCH ×4 (00:21→18:53)
[2018-09-06] MEDS: IPRATROPIUM/ALBUTEROL 0.5-2.5 MG/3 ML AMPUL NEB SCH ×4 (02:07→20:15)
--- NOTE | 2018-09-06 13:57 | PDOC PROGRESS REPORT ---
Subjective Progress Note for:: 09/06/18 Subjective:: I seen patient resting in bed. He was in deep sleep. I awakened him and his response to verbal stimuli is appropriate. Patient is running low blood pressure his latest blood pressure is 76/48 supine. I hold his propranolol and all benzodiazepines. Reason For Visit: ACUTE HYPOXIC RESPIRATORY FAILURE,COPD EXACERBATIO Physical Exam Vital Signs: Temp Pulse Resp BP Pulse Ox 97.8 F 93 18 100/66 91 L 09/06/18 11:13 09/06/18 11:13 09/06/18 11:13 09/06/18 11:13 09/06/18 11:13 Intake & Output 09/05/18 09/06/18 09/07/18 06:59 06:59 06:59 Intake Total 505 582 100 Output Total 1480 200 Balance 505 -898 -100 Weight 50.2 kg General appearance: PRESENT: no acute distress Head exam: PRESENT: atraumatic Eye exam: PRESENT: conjunctiva pink Mouth exam: PRESENT: dry mucosa Respiratory exam: PRESENT: clear to auscultation alia. ABSENT: rales, rhonchi, wheezes Cardiovascular exam: PRESENT: RRR. ABSENT: diastolic murmur, rubs, systolic murmur GI/Abdominal exam: PRESENT: normal bowel sounds, soft. ABSENT: distended, guarding, mass, organolmegaly, rebound, tenderness Extremities exam: PRESENT: full ROM. ABSENT: calf tenderness, clubbing, pedal edema Neurological exam: PRESENT: alert, awake Results Laboratory Results: 09/05/18 04:38 09/05/18 04:38 Impressions: Chest X-Ray 09/02/18 21:26 IMPRESSION: Underlying emphysema. Lungs are clear 2010 [employer]- All Rights Reserved Assessment & Plan - Diagnosis (1) Hypotension Qualifiers: Hypotension type: unspecified hypotension type Qualified Code(s): I95.9 - Hypotension, unspecified Is this a current diagnosis for this admission?: Yes Plan: Hold propranolol and sedatives. I will bolus him with thousand mL of normal saline. (2) COPD with acute bronchitis Is this a current diagnosis for this admission?: Yes Plan: Continue Levaquin and present treatment. (3) Leucocytosis Is this a current diagnosis for this admission?: Yes Plan: Improving (4) Hypokalemia Is this a current diagnosis for this admission?: Yes Plan: Has resolved (5) Alcohol dependence with withdrawal Qualifiers: Complication of substance-induced condition: with unspecified complication Qualified Code(s): F10.239 - Alcohol dependence with withdrawal, unspecified Is this a current diagnosis for this admission?: Yes Plan: Currently patient sedated (6) Tobacco use disorder Is this a current diagnosis for this admission?: Yes Plan: I will encourage him to quit smoking.
[2018-09-06] MEDS ORDERED: NORMAL SALINE 1000 ML 1,000 ML IV ONE (15:00)
[2018-09-06] MEDS: ENOXAPARIN SODIUM INJ 40 MG/0.4 ML DISP.SYRIN SUBCUT SCH (18:03)
[2018-09-06] MEDS: POTASSIUM CHLORIDE 10 MEQ CAPSULE.ER PO SCH (18:03)
[2018-09-06] MEDS: NICOTINE 21 MG/24 HR PATCH.TD24 TD SCH (18:07)
[2018-09-06] MEDS: LEVOFLOXACIN 750 MG/D5W RTU 750 MG/150 ML RTUPB IV SCH (18:09)
[2018-09-06] MEDS: THIAMINE HCL 500 MG in NORMAL SALINE 250 ML IV SCH (18:19)
[2018-09-06] MEDS: METHYLPREDNISOLONE INJ 125 MG/2 ML SDV IV SCH (18:21)
[2018-09-07] MEDS: DIAZEPAM 5 MG TABLET PO SCH ×4 (02:01→22:34)
[2018-09-07] MEDS: IPRATROPIUM/ALBUTEROL 0.5-2.5 MG/3 ML AMPUL NEB SCH ×4 (02:23→21:00)
[2018-09-07 05:24] LABS: ABSOLUTE LYMPHOCYTES (AUTO) 0.4 10^3/uL (0.5-4.7); ABSOLUTE MONOCYTES (AUTO) 0.3 10^3/uL (0.1-1.4); ABSOLUTE NEUT (AUTO) 4.3 10^3/uL (1.7-8.2); BASOPHILS % (AUTO) 0.1 % (0-2); HEMATOCRIT 42.3 % (37.9-51.0); HEMOGLOBIN 14.7 g/dL (13.5-17.0); LYMPHOCYTES % (AUTO) 8.6 % (13-45); MEAN CORPUSCULAR HGB CONC 34.8 g/dL (32.0-36.0); MEAN CORPUSCULAR VOLUME 103 fl (80-97); MONOCYTES % (AUTO) 5.4 % (3-13); RED BLOOD COUNT 4.09 10^6/uL (4.35-5.55); RED CELL DISTRIBUTION WIDTH 14.7 % (11.5-14.0); SEGMENTED NEUTROPHILS % (AUTO) 85.9 % (42-78); TOTAL CELLS COUNTED % (AUTO) 100 %
[2018-09-07 05:44] LABS: ANION GAP 9 (5-19); BLOOD UREA NITROGEN 19 mg/dL (7-20); CALCIUM 8.5 mg/dL (8.4-10.2); CARBON DIOXIDE 23 mmol/L (22-30); CHLORIDE 106 mmol/L (98-107); GLUCOSE 168 mg/dL (75-110); SODIUM 138.2 mmol/L (137-145)
[2018-09-07 05:52] LABS: PLATELET COUNT 99 10^3/uL (150-450)
[2018-09-07] MEDS: METHYLPREDNISOLONE INJ 125 MG/2 ML SDV IV SCH (09:41)
[2018-09-07] MEDS: THIAMINE HCL 500 MG in NORMAL SALINE 250 ML IV SCH (09:43)
[2018-09-07] MEDS: NICOTINE 21 MG/24 HR PATCH.TD24 TD SCH (09:44)
[2018-09-07] MEDS: LEVOFLOXACIN 750 MG/D5W RTU 750 MG/150 ML RTUPB IV SCH (09:47)
[2018-09-07] MEDS: POTASSIUM CHLORIDE 10 MEQ CAPSULE.ER PO SCH (09:47)
[2018-09-07] MEDS: ENOXAPARIN SODIUM INJ 40 MG/0.4 ML DISP.SYRIN SUBCUT SCH (09:51)
--- NOTE | 2018-09-07 11:08 | PDOC PROGRESS REPORT ---
Subjective Progress Note for:: 09/07/18 Subjective:: I seen patient propped up in bed and enjoying his breakfast. Today patient's more awake alert oriented and conversant. His sedation is on hold and his blood pressure is improving. Patient is debilitated and deconditioned and he may benefit from acute short-term rehab. Reason For Visit: ACUTE HYPOXIC RESPIRATORY FAILURE,COPD EXACERBATIO Physical Exam Vital Signs: Temp Pulse Resp BP Pulse Ox 97.5 F 75 16 93/63 L 98 09/07/18 04:16 09/07/18 08:15 09/07/18 08:15 09/07/18 04:16 09/07/18 08:15 Intake & Output 09/06/18 09/07/18 09/08/18 06:59 06:59 06:59 Intake Total 582 2246 Output Total 1480 775 Balance -898 1471 Weight 50.2 kg 49.5 kg General appearance: PRESENT: no acute distress, well-developed, well-nourished Head exam: PRESENT: atraumatic, normocephalic Eye exam: PRESENT: conjunctiva pink, EOMI, PERRLA. ABSENT: scleral icterus Ear exam: PRESENT: normal external ear exam Mouth exam: PRESENT: moist, tongue midline Neck exam: ABSENT: carotid bruit, JVD, lymphadenopathy, thyromegaly Respiratory exam: PRESENT: clear to auscultation alia. ABSENT: rales, rhonchi, wheezes Cardiovascular exam: PRESENT: RRR. ABSENT: diastolic murmur, rubs, systolic murmur Pulses: PRESENT: normal dorsalis pedis pul Vascular exam: PRESENT: normal capillary refill GI/Abdominal exam: PRESENT: normal bowel sounds, soft. ABSENT: distended, guarding, mass, organolmegaly, rebound, tenderness Rectal exam: PRESENT: deferred Extremities exam: PRESENT: full ROM. ABSENT: calf tenderness, clubbing, pedal edema Neurological exam: PRESENT: alert, awake, oriented to person, oriented to place , oriented to time, oriented to situation, CN II-XII grossly intact. ABSENT: motor sensory deficit Psychiatric exam: PRESENT: appropriate affect, normal mood. ABSENT: homicidal ideation, suicidal ideation Skin exam: PRESENT: dry, intact, warm. ABSENT: cyanosis, rash Results Laboratory Results: 09/07/18 04:49 09/07/18 04:49 09/07/18 09/07/18 04:49 04:49 WBC 5.0 RBC 4.09 L Hgb 14.7 Hct 42.3 MCV 103 H MCH 36.0 H MCHC 34.8 RDW 14.7 H Plt Count 99 L Seg Neutrophils % 85.9 H Lymphocytes % 8.6 L Monocytes % 5.4 Eosinophils % 0.0 Basophils % 0.1 Absolute Neutrophils 4.3 Absolute Lymphocytes 0.4 L Absolute Monocytes 0.3 Absolute Eosinophils 0.0 Absolute Basophils 0.0 Sodium 138.2 Potassium 4.0 Chloride 106 Carbon Dioxide 23 Anion Gap 9 BUN 19 Creatinine 0.72 Est GFR ( Amer) > 60 Est GFR (Non-Af Amer) > 60 Glucose 168 H Calcium 8.5 Impressions: Chest X-Ray 09/02/18 21:26 IMPRESSION: Underlying emphysema. Lungs are clear 2010 [employer]- All Rights Reserved Assessment & Plan - Diagnosis (1) Hypotension Qualifiers: Hypotension type: unspecified hypotension type Qualified Code(s): I95.9 - Hypotension, unspecified Is this a current diagnosis for this admission?: Yes Plan: Improving (2) COPD with acute bronchitis Is this a current diagnosis for this admission?: Yes Plan: Continue Levaquin and present treatment. (3) Leucocytosis Is this a current diagnosis for this admission?: Yes Plan: Improving (4) Hypokalemia Is this a current diagnosis for this admission?: Yes Plan: Has resolved (5) Alcohol dependence with withdrawal Qualifiers: Complication of substance-induced condition: with unspecified complication Qualified Code(s): F10.239 - Alcohol dependence with withdrawal, unspecified Is this a current diagnosis for this admission?: Yes Plan: Currently patient sedated (6) Tobacco use disorder Is this a current diagnosis for this admission?: Yes Plan: I will encourage him to quit smoking. (7) Debility and deconditioning Is this a current diagnosis for this admission?: Yes Plan: Patient will benefit from acute short-term rehab. Physical therapy consulted to evaluate the patient.
[2018-09-08] MEDS: DIAZEPAM 5 MG TABLET PO SCH ×2 (01:55→05:29)
[2018-09-08] MEDS: IPRATROPIUM/ALBUTEROL 0.5-2.5 MG/3 ML AMPUL NEB SCH ×2 (02:25→08:25)
[2018-09-08] MEDS: NICOTINE 21 MG/24 HR PATCH.TD24 TD SCH (09:33)
[2018-09-08] MEDS: POTASSIUM CHLORIDE 10 MEQ CAPSULE.ER PO SCH (09:33)
--- NOTE | 2018-09-08 09:33 | PDOC DISCHARGE SUMMARY ---
General - Admit/Disc Date/PCP Admission Date/Primary Care Provider: 09/02/18 23:48 Discharge Date: 09/08/18 - Discharge Diagnosis (1) Hypotension Is this a current diagnosis for this admission?: Yes (2) COPD with acute bronchitis Is this a current diagnosis for this admission?: Yes (3) Leucocytosis Is this a current diagnosis for this admission?: Yes (4) Hypokalemia Is this a current diagnosis for this admission?: Yes (5) Alcohol dependence with withdrawal Is this a current diagnosis for this admission?: Yes (6) Tobacco use disorder Is this a current diagnosis for this admission?: Yes (7) Debility and deconditioning Is this a current diagnosis for this admission?: Yes - Additional Information Resuscitation Status: Full Code Home Medications: No Home Medications 09/03/18 History of Present Illness History of Present Illness: SHANE CAPONE JR is a 63 year old male with history of COPD, no home oxygen. Patient comes with 4 days of progressive shortness of breath, persistent cough with large amounts of greenish sputum, wheezing, tells me that today he was unable to walk secondary to his shortness of breath. EMS was called and he was found sitting on the porch bending over with intercostal retractions. Found with an oxygen saturation 88%. On his way to the hospital he was given IV magnesium, IV steroids and nebulizer treatments. Upon arrival to our facility he was still in respiratory distress but improved from 40 bpm to 21. Patient was a still with some intercostal retractions and he was placed on BiPAP, patient was not keeping the BiPAP in the ED and ketamine and diazepam was given unsuccessfully. Patient was placed on 2 L oxygen via nasal cannula, current saturating 99%. Unfortunately patient is a smoker went down from 2 packs/day to 1 pack/day, he and his older sister smokes inside the house. Patient drinks usually 12 pack a day, today he has had 5 beers. Chest x-ray negative for acute infiltrates. Hospital Course Hospital Course: This is 63 years old male patient admitted with chief complaint of shortness of breath which is progressive associated with cough productive of greenish sputum. At admission patient also found to have leukocytosis. Patient has been empirically started on Zithromax and Levaquin for COPD exacerbation with bronchitis. This morning I seen patient propped up in bed and enjoying his breakfast. He is awake alert oriented and in no form of cardiorespiratory distress. He has been treated with DuoNeb, Zithromax and Levaquin, Solu-Medrol. Patient also hydrated with normal saline to correct his hypotension. Patient has been counseled and encouraged to quit alcohol and remain sober. Since patient is debilitated and deconditioned I consulted physical therapy and after evaluation is recommended physical therapy at home. This morning his vital signs and blood works are within normal limits. Patient is stable enough to go home with home health. Physical Exam Vital Signs: Temp Pulse Resp BP Pulse Ox 97.9 F 74 18 104/56 L 98 09/08/18 07:36 09/08/18 07:36 09/08/18 07:36 09/08/18 07:36 09/08/18 07:36 Intake & Output 09/07/18 09/08/18 09/09/18 06:59 06:59 06:59 Intake Total 2246 1515 Output Total 775 Balance 1471 1515 Weight 49.5 kg 50.3 kg General appearance: PRESENT: no acute distress Head exam: PRESENT: atraumatic Eye exam: PRESENT: conjunctiva pink Mouth exam: PRESENT: moist Respiratory exam: PRESENT: clear to auscultation alia. ABSENT: rales, rhonchi, wheezes Cardiovascular exam: PRESENT: RRR. ABSENT: diastolic murmur, rubs, systolic murmur GI/Abdominal exam: PRESENT: normal bowel sounds, soft. ABSENT: distended, guarding, mass, organolmegaly, rebound, tenderness Neurological exam: PRESENT: alert, awake, oriented to time, oriented to situation Results Laboratory Results: 09/07/18 04:49 09/07/18 04:49 09/03/18 22:49 Sputum Gram Stain - Final 09/03/18 22:49 Sputum Sputum Culture - Final Streptococcus Pneumoniae Normal Olivia Impressions: Chest X-Ray 09/02/18 21:26 IMPRESSION: Underlying emphysema. Lungs are clear 2010 [employer]- All Rights Reserved Qualifiers - * PATIENT BEING DISCHARGED WITH ANY OF THE FOLLOWING DIAGNOSIS: No
[2018-09-08] MEDS: ENOXAPARIN SODIUM INJ 40 MG/0.4 ML DISP.SYRIN SUBCUT SCH (09:34)
[2018-09-08] MEDS ORDERED: LEVOFLOXACIN 750 MG TABLET PO SCH (10:00)
[2018-09-08] MEDS ORDERED: PREDNISONE 20 MG TABLET PO SCH (10:00)
[2018-09-08 11:07] VITALS: BP 92/62
== END 2018-09-08 11:30 | disposition home health service (06) | DRG 190 ==
LOC: ER 21:20 → EH 23:48 → 3N 09-03 01:50 → 3S 09-03 15:29
PROVIDERS: ADMIT Internal Medicine; ATTEND Internal Medicine
PROC: 5A09457 Assistance with Respiratory Ventilation, 24-96 Consecutive Hours, Continuous Positive Airway Pressure (ICD-10-PCS; principal; 2018-09-02)
PROC: 3E02340 Introduction of Influenza Vaccine into Muscle, Percutaneous Approach (ICD-10-PCS; 2018-09-08)
DX: J44.1 Chronic obstructive pulmonary disease with (acute) exacerbation (principal); J96.01 Acute respiratory failure with hypoxia; F10.239 Alcohol dependence with withdrawal, unspecified; J44.0 Chronic obstructive pulmonary disease with (acute) lower respiratory infection; J20.9 Acute bronchitis, unspecified; F17.200 Nicotine dependence, unspecified, uncomplicated; E87.6 Hypokalemia; I95.9 Hypotension, unspecified; B95.3 Streptococcus pneumoniae as the cause of diseases classified elsewhere; Z80.42 Family history of malignant neoplasm of prostate; Z88.2 Allergy status to sulfonamides; Z88.0 Allergy status to penicillin; Z23 Encounter for immunization
CPT/HCPCS: 36415; 36600; 71045; 80048; 80053; 80307; 82803; 83735; 84100; 85025; 85027; 87070; 87077; 87186; 87205; 90686; 93005; 93010; 94640; 94660; 96361; 96374; 96375; 99291; C1758; J0456; J1650; J1956; J2060; J2550; J2930; J3360; J3411; J3490; J7030; J7050; J7060; J7120; J7512; J7620

== ENCOUNTER 2018-10-06 22:19 | Emergency (ER) | payer MEDICAID ==
[2018-10-06] MEDS ORDERED: IPRATROPIUM/ALBUTEROL 0.5-2.5 MG/3 ML AMPUL NEB ONE ×2 (22:41→23:43)
--- NOTE | 2018-10-06 22:48 | ER Document Report ---
ED General - General Chief Complaint: Shortness Of Breath Stated Complaint: TROUBLE BREATHING Time Seen by Provider: 10/06/18 22:25 Notes: Patient is a 63-year-old male who presents to the emergency department with a chief complaint of shortness of breath. He said he was supposed to take a couple of breathing treatments a day, but did not. Upon assessment, patient was unable to give a complete history of why he is here. He said he, "done fell out." When asked if he lost consciousness, he stated he did not. He said that he fell over his shoes, but did not hit his head. His sister is his primary truss builder and she thought he was having a "stroke," therefore she called EMS. He was unable to give his medical history and did not know which medications he takes. According to his medical record, he has COPD, chronic alcohol dependence, tobacco abuse, and was hospitalized a month ago with a COPD exacerbation. TRAVEL OUTSIDE OF THE [place] IN LAST 30 DAYS: No - Related Data Allergies/Adverse Reactions: Penicillins Allergy (Verified 01/06/15 09:59) Sulfa (Sulfonamide Antibiotics) Allergy (Verified 01/06/15 09:59) Past Medical History - Social History Smoking Status: Current Every Day Smoker Frequency of alcohol use: Heavy Drug Abuse: None Lives with: Family Family History: Reviewed & Not Pertinent Pulmonary Medical History: Reports: Hx Asthma, Hx COPD, Hx Pneumonia Renal/ Medical History: Denies: Hx Peritoneal Dialysis Past Surgical History: Reports: Hx Oral Surgery - jaw, Other - Oral surgery - Immunizations Immunizations up to date: Yes Hx Diphtheria, Pertussis, Tetanus Vaccination: Yes - 2009 Hx Pneumococcal Vaccination: 10/31/09 Review of Systems - Review of Systems Notes: REVIEW OF SYSTEMS: CONSTITUTIONAL : Denies recent illness. Denies recent unintentional weight loss. Denies fever, chills, or sweats. EENT: Denies eye, ear, throat, or mouth pain, discharge, or symptoms. Denies nasal or sinus congestion. CARDIOVASCULAR: Denies chest pain. RESPIRATORY: See HPI. GASTROINTESTINAL: Denies nausea, vomiting, and diarrhea. Denies abdominal pain. Denies constipation. GENITOURINARY: Denies difficulty urinating, burning, blood in urine, urgency or frequency. MUSCULOSKELETAL: Denies neck and back pain. Denies joint pain or swelling. SKIN: Denies rash, itchiness, or lesions HEMATOLOGIC : Denies easy bruising or bleeding. LYMPHATIC: Denies swollen, painful, enlarged glands. NEUROLOGICAL: Denies no numbness or tingling denies weakness. Denies headache. Denies altered mental status. Denies alteration in speech. PSYCHIATRIC: Denies stress, anxiety, alteration in sleep patterns, or depression. All other systems reviewed and negative. Physical Exam - Vital signs Vitals: Resp Pulse Ox 9 L 96 10/06/18 22:22 10/06/18 22:22 - Notes Notes: PHYSICAL EXAMINATION: GENERAL: Appears skinny, malnourished, no acute distress. HEAD: Normocephalic, atraumatic. EYES: PERRL, conjunctiva normal, all extraocular movements intact, sclera nonicteric ENT: Moist mucous membranes. NECK: Supple, no noticeable swelling, redness, rash. Normal range of motion. LUNGS: Diminished breath sounds throughout, with expiratory wheezes in the right lung field. CARDIOVASCULAR: S1-S2, regular rate, regular rhythm. Radial pulses 2+, normal. ABDOMEN: Normoactive bowel sounds. Soft, nontender, no guarding, no rebound tenderness, and no masses palpated. EXTREMITIES: Normal strength and range of motion, no pitting or edema. No cyanosis. NEUROLOGICAL: Moves all extremities upon command. Strength 5/5 in all extremities. PSYCH: Normal mood, normal affect. SKIN: Warm, dry. No rash, lesions, ulcerations noted. Thin, very dry skin. Course - Re-evaluation Re-evalutation: 10/06/18 22:51 Patient does not appear short of breath at this time, but does have diminished breath sounds throughout, with expiratory wheezes in his right lung mack. At this time the differential diagnosis includes: Pneumonia and COPD exacerbation. 10/06/18 23:29 Patient's chest x-ray is negative. Labs are unremarkable. 10/06/18 23:44 Patient's lung sounds have improved, but he continues to have expiratory wheezes now throughout. He will be given another DuoNeb treatment and 2g of magnesium sulfate IV. 10/07/18 00:28 Patient's lung sounds have greatly improved. He will be ambulated with continuous pulse ox to determine if he is stable for discharge. His clinical picture is most consistent with an acute COPD exacerbation. 10/07/18 00:46 Patient ambulated in the [place] in his oxygen saturation was 91-95% on room air. He is stable for discharge. Verbal discharge instructions were given to the patient and he verbalized understanding. - Vital Signs Vital signs: Temp Pulse Resp BP Pulse Ox 14 94 10/06/18 23:00 10/06/18 23:00 - Laboratory Result Diagrams: 10/06/18 23:05 10/06/18 23:05 Laboratory results interpreted by me: 10/06/18 10/06/18 23:05 23:05 MCV 102 H MCH 35.8 H RDW 14.3 H Seg Neutrophils % 23.3 L Lymphocytes % 57.3 H Eosinophils % 11.5 H Absolute Neutrophils 1.4 L Absolute Eosinophils 0.7 H BUN 6 L - EKG Interpretation by Me Additional EKG results interpreted by me: 10/06/18 23:27 Sinus rhythm. Rate 77; NV 152; QRS 90; QT 380; QTC 431. No ST elevations or depressions. Discharge - Discharge Clinical Impression: COPD exacerbation Condition: Stable Disposition: HOME, SELF-CARE Additional Instructions: You have been seen in the emergency department for shortness of breath. Please follow-up with your primary care doctor in regards to this emergency department visit. Please take all your medications as prescribed. Please try her best to stop smoking, as this is contributing to your long-term shortness of breath and does not help you breathe better. If you develop shortness of breath again, chest pain, or any symptoms that are worrisome to you, please return to the emergency department. Enjoy your pet deer.
--- NOTE | 2018-10-06 23:01 | RADIOLOGY REPORT (SQ) ---
XR CHEST 2 VIEWS HISTORY: SOB . COMPARISON: 09/02/2020 FINDINGS: The cardiomediastinal silhouette is unremarkable. The lungs are clear. No pleural effusion or pneumothorax is identified. IMPRESSION: No acute cardiopulmonary abnormality.
[2018-10-06 23:20] LABS: ABSOLUTE BASOPHILS # (AUTO) 0.1 10^3/uL (0.0-0.2); ABSOLUTE EOSINOPHILS # (AUTO) 0.7 10^3/uL (0.0-0.6); ABSOLUTE LYMPHOCYTES (AUTO) 3.5 10^3/uL (0.5-4.7); ABSOLUTE MONOCYTES (AUTO) 0.4 10^3/uL (0.1-1.4); ABSOLUTE NEUT (AUTO) 1.4 10^3/uL (1.7-8.2); BASOPHILS % (AUTO) 0.8 % (0-2); EOSINOPHILS % (AUTO) 11.5 % (0-6); HEMATOCRIT 46.8 % (37.9-51.0); HEMOGLOBIN 16.4 g/dL (13.5-17.0); LYMPHOCYTES % (AUTO) 57.3 % (13-45); MEAN CORPUSCULAR HEMOGLOBIN 35.8 pg (27.0-33.4); MEAN CORPUSCULAR VOLUME 102 fl (80-97); MONOCYTES % (AUTO) 7.1 % (3-13); PLATELET COUNT 230 10^3/uL (150-450); RED BLOOD COUNT 4.57 10^6/uL (4.35-5.55); RED CELL DISTRIBUTION WIDTH 14.3 % (11.5-14.0); SEGMENTED NEUTROPHILS % (AUTO) 23.3 % (42-78); TOTAL CELLS COUNTED % (AUTO) 100 %; WHITE BLOOD COUNT 6.1 10^3/uL (4.0-10.5)
[2018-10-06 23:29] LABS: ANION GAP 16 (5-19); BLOOD UREA NITROGEN 6 mg/dL (7-20); CARBON DIOXIDE 25 mmol/L (22-30); CHLORIDE 102 mmol/L (98-107); GLUCOSE 91 mg/dL (75-110); POTASSIUM 3.9 mmol/L (3.6-5.0); SODIUM 143.3 mmol/L (137-145)
[2018-10-07] MEDS: MAGNESIUM SULFATE/D5W 1 GM/100 ML RTUPB IV SCH ×2 (00:01)
[2018-10-07 07:05] VITALS: BP 102/66
--- NOTE | 2018-10-08 10:54 | EKG REPORT ---
SEVERITY:- ABNORMAL ECG - SINUS RHYTHM LEFT ANTERIOR FASCICULAR BLOCK : Confirmed by: Rosetta Hernandez 08-Oct-2018 10:53:47
== END 2018-10-07 07:06 | disposition home or self-care (01) ==
LOC: ER 22:19
DX: J44.1 Chronic obstructive pulmonary disease with (acute) exacerbation (principal); R06.02 Shortness of breath; F10.20 Alcohol dependence, uncomplicated; F17.200 Nicotine dependence, unspecified, uncomplicated
CPT/HCPCS: 93005; 94640 ×2; 99285; 96365; 36415; 85025; 80048; 71046; 93010; J3475; J7620 ×2

== ENCOUNTER 2019-06-02 12:03 | Emergency (ER) | payer MEDICARE, MEDICAID ==
[2019-06-02] MEDS ORDERED: ONDANSETRON 4 MG TAB.RAPDIS PO ONE (12:17)
--- NOTE | 2019-06-02 12:20 | ER Document Report ---
ED Medical Screen (RME) - General Chief Complaint: Flank Pain Stated Complaint: FLANK PAIN Time Seen by Provider: 06/02/19 12:13 Mode of Arrival: Ambulatory Information source: Patient Notes: This 64-year-old male presents the emergency department with reports of pain with void, flank pain. Denies testicular pain. Reports left-sided flank pain started today. Pain with void started yesterday. Reports he vomited one time. Patient reports he has a history of kidney stones. Patient is extremely hard of hearing. Left flank tender to palpate left lower quad tender to palpate. I have greeted and performed a rapid initial assessment of this patient. A comprehensive ED assessment and evaluation of the patient, analysis of test results and completion of the medical decision making process will be conducted by additional ED providers. Dictation of this chart was performed using voice recognition software; therefore, there may be some unintended grammatical errors. TRAVEL OUTSIDE OF THE [place] IN LAST 30 DAYS: No - Related Data Allergies/Adverse Reactions: Penicillins Allergy (Verified 01/06/15 09:59) Sulfa (Sulfonamide Antibiotics) Allergy (Verified 01/06/15 09:59) Past Medical History - General Information source: Patient - Social History Chew tobacco use (# tins/day): No Frequency of alcohol use: Heavy Drug Abuse: None Pulmonary Medical History: Reports: Hx Asthma, Hx COPD, Hx Pneumonia Renal/ Medical History: Denies: Hx Peritoneal Dialysis Past Surgical History: Reports: Hx Oral Surgery - jaw, Other - Oral surgery - Immunizations Immunizations up to date: Yes Hx Diphtheria, Pertussis, Tetanus Vaccination: Yes - 2009 Physical Exam - Vital signs Vitals: Temp Pulse Resp BP Pulse Ox 97.8 F 90 19 118/80 94 06/02/19 12:06 06/02/19 12:06 06/02/19 12:06 06/02/19 12:06 06/02/19 12:06 Course - Vital Signs Vital signs: Temp Pulse Resp BP Pulse Ox 97.8 F 90 19 118/80 94 06/02/19 12:06 06/02/19 12:06 06/02/19 12:06 06/02/19 12:06 06/02/19 12:06
--- NOTE | 2019-06-02 13:00 | RADIOLOGY REPORT (SQ) ---
EXAM DESCRIPTION: CT ABD/PELVIS NO ORAL OR IV COMPLETED DATE/TIME: 06/02/2019 12:40 pm REASON FOR STUDY: LEFT FLANK PAIN COMPARISON: None. TECHNIQUE: CT scan of the abdomen and pelvis performed without intravenous or oral contrast. Images reviewed with lung, soft tissue, and bone windows. Reconstructed coronal and sagittal MPR images revi ewed. All images stored on PACS. All CT scanners at this facility use dose modulation, iterative reconstruction, and/or weight based d osing when appropriate to reduce radiation dose to as low as reasonably achievable (ALARA). [facility]: Dose Right [facility]: CareDose [facility]: Dose Right [facility]: Teradose 4D [facility]: Smart [employer] RADIATION DOSE: CT Rad equipment meets quality standard of care and radiation dose reduction techniq ues were employed. CTDIvol: 4.8 mGy. DLP: 218 mGy-cm.mGy. LIMITATIONS: None. FINDINGS: LOWER CHEST: No significant findings. No nodules or infiltrates. NON-CONTRASTED LIVER, SPLEEN, ADRENALS: Evaluation limited by lack of IV contrast. Splenic calcifica tions. No identified significant masses. PANCREAS: No masses. No peripancreatic inflammatory changes. GALLBLADDER: No identified stones by CT criteria. No inflammatory changes to suggest cholecystitis. RIGHT KIDNEY AND URETER: No suspicious masses. Assessment limited by lack of IV contrast. No signif icant calcifications. No hydronephrosis or hydroureter. LEFT KIDNEY AND URETER: No suspicious masses. Assessment limited by lack of IV contrast. No signifi cant calcifications. No hydronephrosis or hydroureter. AORTA AND RETROPERITONEUM: No aneurysm. No retroperitoneal masses or adenopathy. BOWEL AND PERITONEAL CAVITY: No obvious masses or inflammatory changes. No free fluid. APPENDIX: Normal. PELVIS, BLADDER, AND ABDOMINAL WALL:No abnormal masses. No free fluid. Bladder normal. BONES: Degenerative disc disease at L5-S1. Compression deformity of the superior endplate of L2 whic h appears to be old. OTHER: No other significant finding. IMPRESSION: NO SIGNIFICANT OR ACUTE PROCESS IN THE ABDOMEN OR PELVIS. COMMENT: Quality ID # [id number]: Final reports with documentation of one or more dose reduction techniques (e.g., Automated exposure control, adjustment of the mA and/or kV according to patient size, use of iterative reconstruction technique) TECHNICAL DOCUMENTATION: JOB ID: [id number] [employer]- All Rights Reserved Reading location - IP/workstation name: [email or web address]
[2019-06-02 13:52] LABS: APPEARANCE,URINE CLEAR; BILIRUBIN,URINE NEGATIVE (NEGATIVE); COLOR,URINE YELLOW; GLUCOSE, URINE NEGATIVE (NEGATIVE); KETONES,URINE NEGATIVE (NEGATIVE); LEUKOCYTE ESTERASE,URINE NEGATIVE (NEGATIVE); NITRITE,URINE NEGATIVE (NEGATIVE); PROTEIN,URINE NEGATIVE (NEGATIVE); URINE SPECIFIC GRAVITY 1.005; UROBILINOGEN,URINE NEGATIVE mg/dL (<2.0)
[2019-06-02 14:12] LABS: ABSOLUTE EOSINOPHILS # (AUTO) 0.3 10^3/uL (0.0-0.6); ABSOLUTE LYMPHOCYTES (AUTO) 2.2 10^3/uL (0.5-4.7); ABSOLUTE MONOCYTES (AUTO) 0.3 10^3/uL (0.1-1.4); ABSOLUTE NEUT (AUTO) 1.2 10^3/uL (1.7-8.2); BASOPHILS % (AUTO) 0.9 % (0-2); EOSINOPHILS % (AUTO) 6.8 % (0-6); HEMATOCRIT 48.1 % (37.9-51.0); HEMOGLOBIN 16.3 g/dL (13.5-17.0); LYMPHOCYTES % (AUTO) 54.2 % (13-45); MEAN CORPUSCULAR HEMOGLOBIN 34.1 pg (27.0-33.4); MEAN CORPUSCULAR HGB CONC 33.8 g/dL (32.0-36.0); MEAN CORPUSCULAR VOLUME 101 fl (80-97); MONOCYTES % (AUTO) 7.7 % (3-13); PLATELET COUNT 188 10^3/uL (150-450); RED BLOOD COUNT 4.77 10^6/uL (4.35-5.55); RED CELL DISTRIBUTION WIDTH 13.2 % (11.5-14.0); SEGMENTED NEUTROPHILS % (AUTO) 30.4 % (42-78); TOTAL CELLS COUNTED % (AUTO) 100 %
[2019-06-02 14:27] LABS: ALBUMIN 4.7 g/dL (3.5-5.0); ALCOHOL 229 mg/dL (NONE DETECTED); ALKALINE PHOSPHATASE 103 U/L (38-126); ANION GAP 13 (5-19); ASPARTATE AMINO TRANSFERASE 48 U/L (17-59); BILIRUBIN,DIRECT 0.3 mg/dL (0.0-0.4); BILIRUBIN,TOTAL 0.7 mg/dL (0.2-1.3); BLOOD UREA NITROGEN 7 mg/dL (7-20); CALCIUM 9.1 mg/dL (8.4-10.2); CARBON DIOXIDE 30 mmol/L (22-30); CHLORIDE 99 mmol/L (98-107); GLUCOSE 97 mg/dL (75-110); POTASSIUM 4.6 mmol/L (3.6-5.0); TOTAL PROTEIN 7.7 g/dL (6.3-8.2)
--- NOTE | 2019-06-02 15:31 | ER Document Report ---
ED General - General Chief Complaint: Flank Pain Stated Complaint: FLANK PAIN Time Seen by Provider: 06/02/19 12:13 Mode of Arrival: Ambulatory Information source: Patient Notes: This 64-year-old male presents the emergency department with reports of pain with void, flank pain. Denies testicular pain. Reports left-sided flank pain started today. Pain with void started yesterday. Reports he vomited one time. Patient reports he has a history of kidney stones. Patient is extremely hard of hearing. Denies fever vomiting diarrhea. TRAVEL OUTSIDE OF THE [place] IN LAST 30 DAYS: No - HPI Onset: Yesterday Onset/Duration: Sudden Associated symptoms: None Exacerbated by: Other - voiding Relieved by: Denies Similar symptoms previously: Yes Recently seen / treated by doctor: No - Related Data Allergies/Adverse Reactions: Penicillins Allergy (Verified 01/06/15 09:59) Sulfa (Sulfonamide Antibiotics) Allergy (Verified 01/06/15 09:59) Past Medical History - General Information source: Patient - Social History Smoking Status: Current Every Day Smoker Chew tobacco use (# tins/day): No Frequency of alcohol use: Heavy Drug Abuse: None Lives with: Family - sister Family History: Reviewed & Not Pertinent Patient has suicidal ideation: No Patient has homicidal ideation: No Pulmonary Medical History: Reports: Hx Asthma, Hx COPD, Hx Pneumonia Renal/ Medical History: Denies: Hx Peritoneal Dialysis Past Surgical History: Reports: Hx Oral Surgery - jaw, Other - Oral surgery - Immunizations Immunizations up to date: Yes Hx Diphtheria, Pertussis, Tetanus Vaccination: Yes - 2009 Hx Pneumococcal Vaccination: 10/31/09 Review of Systems - Review of Systems Notes: Review HPI for review of systems., All other systems negative Physical Exam - Vital signs Vitals: Temp Pulse Resp BP Pulse Ox 97.8 F 90 19 118/80 94 06/02/19 12:06 06/02/19 12:06 06/02/19 12:06 06/02/19 12:06 06/02/19 12:06 - General General appearance: Alert In distress: None - HEENT Head: Normocephalic, Atraumatic Eyes: Normal Conjunctiva: Normal Pupils: PERRL Neck: Normal, Supple. No: Lymphadenopathy - Respiratory Respiratory status: No respiratory distress Chest status: Nontender Breath sounds: Normal Chest palpation: Normal - Cardiovascular Rhythm: Regular Heart sounds: Normal auscultation Murmur: No - Abdominal Inspection: Normal Distension: No distension Bowel sounds: Normal Tenderness: Nontender Organomegaly: No organomegaly - Back Back: Normal, CVA tenderness - left flank pain - Extremities General upper extremity: Normal ROM General lower extremity: Normal ROM - Neurological Neuro grossly intact: Yes Cognition: Normal Orientation: AAOx4 [place] Coma Scale Eye Opening: Spontaneous [place] Coma Scale Verbal: Oriented [place] Coma Scale Motor: Obeys Commands V[place]y Coma Scale Total: 15 Speech: Normal - Psychological Associated symptoms: Normal affect, Normal mood - Skin Skin Temperature: Warm Skin Moisture: Dry Skin Color: Normal Course - Re-evaluation Re-evalutation: 06/02/19 16:28 This 64-year-old male presents the emergency department with reports of pain with void, flank pain. Denies testicular pain. Reports left-sided flank pain started today. Pain with void started yesterday. Reports he vomited one time. Patient reports he has a history of kidney stones. Patient is extremely hard of hearing. Denies fever vomiting diarrhea. Labs unremarkable, urine clear, CT negative for kidney stone. Patient reports he is feeling better. Discussed alcohol of with patient he reports he drinks a lot. Says this with a giggle. Patient reports his sister drove him here and he has a ride home. Patient was instructed to monitor his temperature monitor pain return for symptoms he verbalized understanding. Abdomen/Pelvis CT 06/02/19 12:17 IMPRESSION: NO SIGNIFICANT OR ACUTE PROCESS IN THE ABDOMEN OR PELVIS. 06/02/19 13:47 06/02/19 13:47 MCV 101 fl (80-97) H 06/02/19 13:47 MCH 34.1 pg (27.0-33.4) H 06/02/19 13:47 MCHC 33.8 g/dL (32.0-36.0) 06/02/19 13:47 RDW 13.2 % (11.5-14.0) 06/02/19 13:47 Seg Neutrophils % 30.4 % (42-78) L 06/02/19 13:47 Lymphocytes % 54.2 % (13-45) H 06/02/19 13:47 Monocytes % 7.7 % (3-13) 06/02/19 13:47 Eosinophils % 6.8 % (0-6) H 06/02/19 13:47 Basophils % 0.9 % (0-2) 06/02/19 13:47 Absolute Neutrophils 1.2 10^3/uL (1.7-8.2) L 06/02/19 13:47 Absolute Lymphocytes 2.2 10^3/uL (0.5-4.7) 06/02/19 13:47 Absolute Monocytes 0.3 10^3/uL (0.1-1.4) 06/02/19 13:47 Absolute Eosinophils 0.3 10^3/uL (0.0-0.6) 06/02/19 13:47 Absolute Basophils 0.0 10^3/uL (0.0-0.2) 06/02/19 13:47 Chloride 99 mmol/L (98-107) 06/02/19 13:47 Carbon Dioxide 30 mmol/L (22-30) 06/02/19 13:47 Anion Gap 13 (5-19) 06/02/19 13:47 Est GFR ( Amer) > 60 (>60) 06/02/19 13:47 Est GFR (Non-Af Amer) > 60 (>60) 06/02/19 13:47 Glucose 97 mg/dL (75-110) 06/02/19 13:47 Calcium 9.1 mg/dL (8.4-10.2) 06/02/19 13:47 Total Bilirubin 0.7 mg/dL (0.2-1.3) 06/02/19 13:47 AST 48 U/L (17-59) 06/02/19 13:47 Alkaline Phosphatase 103 U/L (38-126) 06/02/19 13:47 Total Protein 7.7 g/dL (6.3-8.2) 06/02/19 13:47 Albumin 4.7 g/dL (3.5-5.0) 06/02/19 13:47 Lipase 71.8 U/L (23-300) 06/02/19 13:47 Urine Color YELLOW 06/02/19 13:40 Urine Appearance CLEAR 06/02/19 13:40 Urine pH 5.0 (5.0-9.0) 06/02/19 13:40 Ur Specific [place] 1.005 06/02/19 13:40 Urine Protein NEGATIVE mg/dL (NEGATIVE) 06/02/19 13:40 Urine Glucose (UA) NEGATIVE mg/dL (NEGATIVE) 06/02/19 13:40 Urine Ketones NEGATIVE mg/dL (NEGATIVE) 06/02/19 13:40 Urine Blood NEGATIVE (NEGATIVE) 06/02/19 13:40 Urine Nitrite NEGATIVE (NEGATIVE) 06/02/19 13:40 Ur Leukocyte Esterase NEGATIVE (NEGATIVE) 06/02/19 13:40 Urine WBC (Auto) 0 /HPF 06/02/19 13:40 Urine RBC (Auto) 0 /HPF 06/02/19 13:40 - Vital Signs Vital signs: Temp Pulse Resp BP Pulse Ox 98.0 F 82 16 116/81 98 06/02/19 15:47 06/02/19 15:47 06/02/19 15:47 06/02/19 15:47 06/02/19 15:47 - Laboratory Result Diagrams: 06/02/19 13:47 06/02/19 13:47 Laboratory results interpreted by me: 06/02/19 13:47 MCV 101 H MCH 34.1 H Seg Neutrophils % 30.4 L Lymphocytes % 54.2 H Eosinophils % 6.8 H Absolute Neutrophils 1.2 L - Diagnostic Test Radiology reviewed: Image reviewed, Reports reviewed Discharge - Discharge Clinical Impression: Flank pain, ETOH abuse, Voiding pain Condition: Stable Disposition: HOME, SELF-CARE Instructions: Chronic Alcoholism ([facility]), Family Physicians / Practices, Flank Pain ([facility]) Additional Instructions: *You have been evaluated for flank pain *Monitor your pain, take tylenol as indicated *Follow up with a primary care provider within one week *Return to ED for worsening condition, changes, needs,, fever *Return to ED if not better in 24 hours Monitor your blood pressure. Your blood pressure was elevated today. This may be because you were anxious, in pain or because you need medication. It is important to follow up with your primary care provider for full evaluation. Forms: Elevated Blood Pressure
[2019-06-02 15:48] VITALS: BP 116/81
== END 2019-06-02 15:49 | disposition home or self-care (01) ==
LOC: ER 12:03
DX: R10.9 Unspecified abdominal pain (principal); R30.0 Dysuria; F10.10 Alcohol abuse, uncomplicated; R11.10 Vomiting, unspecified; F17.200 Nicotine dependence, unspecified, uncomplicated; J44.9 Chronic obstructive pulmonary disease, unspecified; Z87.442 Personal history of urinary calculi; Z88.0 Allergy status to penicillin; Z88.2 Allergy status to sulfonamides
CPT/HCPCS: 99284; 36415; 80307; 83690; 85025; 80053; 81001; 74176; A9270; S0119